=== PATIENT | male | born 1995 | race Caucasian/White ===

== ENCOUNTER 2018-07-04 11:45 | Emergency (ER) | payer BC ==
[2018-07-04 12:27] VITALS: BP 111/80
--- NOTE | 2018-07-04 12:35 | UC ---
Throat Pain/Nasal Truman HPI - HPI Summary HPI Summary: sore throat x 3 days pain is sever 8 out of 10 + fever, chills, no cough , no runny nose - History of Current Complaint Chief Complaint: UCRespiratory Stated Complaint: SORE THROAT Time Seen by Provider: 07/04/18 12:29 Hx Obtained From: Patient Onset/Duration: Gradual Onset, Lasting Days - 3, Still Present Severity: Severe Pain Intensity: 8 Cough: None Associated Signs & Symptoms: Positive: Fever. Negative: Dysphagia, FB Sensation , Drooling, Wheezing, Hoarseness, Sinus Discomfort, Nasal Discharge, Vomiting, Rash - Allergies/Home Medications Allergies/Adverse Reactions: Allergies Allergy/AdvReac Type Severity Reaction Status Date / Time MS Bee Venom [Bee Venom] Allergy Swelling Verified 07/04/18 12:19 IV CONTRAST DYE Allergy Difficulty Uncoded 07/04/18 12:19 Breathing Home Medications: Home Medications Aspirin/Acetaminophen/Caffeine [Excedrin Extra Strength Caplet] 2 each PO PRN [History] PMH/Surg Hx/FS Hx/Imm Hx Previously Healthy: Yes - Surgical History Surgical History: None - Family History Known Family History: Positive: None Negative: Diabetes - Social History Alcohol Use: None Substance Use Type: None Smoking Status (MU): Never Smoked Tobacco - Immunization History Most Recent Influenza Vaccination: not this season Review of Systems All Other Systems Reviewed And Are Negative: Yes Constitutional: Positive: Fever, Chills, Fatigue Skin: Positive: Negative Eyes: Positive: Negative ENT: Positive: Sore Throat Respiratory: Positive: Negative Is Patient Immunocompromised?: No Physical Exam Triage Information Reviewed: Yes Appearance: Well-Nourished, Pain Distress Vital Signs: Initial Vital Signs Temp 98.3 F 07/04/18 12:22 Pulse 102 07/04/18 12:22 Resp 20 07/04/18 12:22 BP 111/80 07/04/18 12:22 Pulse Ox 98 07/04/18 12:22 Vital Signs Reviewed: Yes Eye Exam: Normal Eyes: Positive: Conjunctiva Clear ENT: Positive: Normal ENT inspection, Hearing grossly normal, Pharyngeal erythema, Tonsillar swelling. Negative: Nasal congestion, Nasal drainage, Tonsillar exudate, Trismus Neck: Positive: Supple, Enlarged Nodes @ Respiratory: Positive: Chest non-tender, Lungs clear, Normal breath sounds Cardiovascular: Positive: No Murmur, Tachycardia Throat Pain/Nasal Course/Dx - Differential Dx/Diagnosis Provider Diagnosis: Pharyngitis Discharge - Sign-Out/Discharge Documenting (check all that apply): Patient Departure All imaging exams completed and their final reports reviewed: No Studies - Discharge Plan Condition: Stable Disposition: HOME Prescriptions: Clindamycin Cap(NF) [Clindamycin Cap 300 mg Cap(NF)] 300 mg PO Q6H #40 cap Patient Education Materials: Pharyngitis (ED) Referrals: Alyssa Fernandes MD [Primary Care Provider] - If Needed - Billing Disposition and Condition Condition: STABLE Disposition: Home
== END 2018-07-04 12:54 | disposition home or self-care (01) ==
LOC: UCCORT 11:45
DX: J02.9 Acute pharyngitis, unspecified (principal)
CPT/HCPCS: 87651; 99212; G0463